=== PATIENT | male | born 1935 | race Caucasian/White ===

== ENCOUNTER 2017-10-25 22:35 | Inpatient (IN) | payer MEDICARE ==
[~2017-10-25] VITALS: Ht 177.8 cm; Wt 83.9 kg
--- NOTE | 2017-10-25 22:56 | Emergency Room Report ---
History of Present Illness General Chief Complaint: Chest Pain Source: Patient, EMS Present Illness HPI Is an 81-year-old male with a history of CAD with previous stents in 2002. He presents with chief complaint of epigastric pain. Onset was tonight. He said he came home from the gym and has something to eat. He developed epigastric pain without radiation. No nausea no vomiting. No diaphoresis but no exertional component. Because the pain didn't go away he called 911. EMS gave him nitroglycerin and aspirin. Right now is pain-free. He think that pain went away after he drank some chamomile tea. Allergies: Coded Allergies: No Known Allergies (Unverified , 10/25/17) Patient History Past Medical History: see triage record, old chart reviewed Past Surgical History: none Pertinent Family History: none Social History: Denies: smoking Immunizations: other Reviewed Nursing Documentation: PMH: Agreed; PSxH: Agreed Nursing Documentation-PMH Hx Cardiac Problems: Yes - stent placed 2004 Review of Systems Eye: Denies: eye pain, blurred vision ENT: Denies: ear pain, nose congestion, throat swelling Respiratory: Denies: cough, shortness of breath Cardiovascular: Reports: chest pain; Denies: palpitations Gastrointestinal: Denies: abdominal pain, diarrhea, nausea, vomiting Musculoskeletal: Denies: back pain, joint pain Skin: Denies: rash Neurological: Denies: headache, numbness Endocrine: Denies: increased thirst, increased urine Hematologic/Lymphatic: Denies: easy bruising All Other Systems: negative except mentioned in HPI Physical Exam Vital Signs Date Time Temp Pulse Resp B/P (MAP) Pulse Ox O2 Delivery O2 Flow Rate FiO2 10/25/17 22:32 98.2 58 16 155/74 96 Room Air 98.2 vitals with high blood pressure Sp02 EP Interpretation: reviewed, normal General Appearance: well appearing, no apparent distress, alert Head: normocephalic, atraumatic Eyes: bilateral eye PERRL, bilateral eye EOMI ENT: hearing grossly normal, normal pharynx Neck: full range of motion, supple, no meningismus Respiratory: chest non-tender, lungs clear, normal breath sounds Cardiovascular #1: regular rate, rhythm, no murmur Gastrointestinal: normal bowel sounds, non tender, no mass, no organomegaly, no bruit, non-distended Musculoskeletal: back normal, gait/station normal, normal range of motion Psychiatric: mood/affect normal Skin: warm/dry Medical Decision Making Diagnostic Impression: Primary Impression: Chest pain Qualified Codes: R07.9 - Chest pain, unspecified ER Course Patient presents with chest pain. Atypical in nature but with his history of UT with stent and age, I will admit for further testing. No evidence of ST elevation UT, PE, dissection, pneumonia to name a few. Patient is pain-free here. Will admit for further workup. I attempted to transfer patient to [facility] because his rating examiner there. Unfortunately, [facility] is on diversion. Discussed the case with Dr. Trevino who will admit. Lab Results Impression labs unremarkable EKG Diagnostic Results Rate: normal Rhythm: NSR ST Segments: no acute changes ASA given to the pt in ED: No - received aspirin by EMS Rhythm Strip Diag. Results Rhythm Strip Time: 22:55 EP Interpretation: yes Rate: 57 Rhythm: NSR, no PVC's, no ectopy Chest X-Ray Diagnostic Results Chest X-Ray Diagnostic Results : Chest X-Ray Ordered: Yes # of Views/Limited/Complete: 1 View Indication: Chest Pain EP Interpretation: Yes Interpretation: no consolidation, no effusion, no pneumothorax, no acute cardiopulmonary disease Impression: No acute disease Electronically Signed by: Anthony Saba MD Last Vital Signs Date Time Temp Pulse Resp B/P (MAP) Pulse Ox O2 Delivery O2 Flow Rate FiO2 10/25/17 22:32 98.2 58 16 155/74 96 Room Air 98.2 Status: improved Disposition: ADMITTED INPATIENT Condition: Serious ANTHONY SABA M.D. Oct 25, 2017 22:56
[2017-10-25 23:52] LABS: ANION GAP 9 mmol/L (5-15); BLOOD UREA NITROGEN 18 mg/dL (7-18); CALCIUM 9.3 MG/DL (8.5-10.1); CARBON DIOXIDE 25 MMOL/L (21-32); CHLORIDE 101 MMOL/L (98-107); POTASSIUM 4.8 MMOL/L (3.5-5.1); SODIUM 135 MMOL/L (136-145)
[2017-10-25 23:54] LABS: HEMOGLOBIN 16.6 G/DL (14.2-18.0); MEAN CORPUSCULAR VOLUME 82 FL (80-99); PLATELET COUNT 126 K/UL (150-450); RED BLOOD COUNT 6.08 M/UL (4.70-6.10); RED CELL DISTRIBUTION WIDTH 13.3 % (11.6-14.8); WHITE BLOOD COUNT 7.5 K/UL (4.8-10.8)
[2017-10-26 00:05] LABS: ALANINE AMINOTRANSFERASE 23 U/L (12-78); ALBUMIN 3.6 G/DL (3.4-5.0); ALBUMIN/GLOBULIN RATIO 0.9 (1.0-2.7); ALKALINE PHOSPHATASE 49 U/L (46-116); ASPARTATE AMINO TRANSFERASE 44 U/L (15-37); BILIRUBIN,TOTAL 0.8 MG/DL (0.2-1.0); CKMB 0.7 NG/ML (0.0-3.6); CREATINE KINASE 141 U/L (26-308)
[2017-10-26 01:00] VITALS: BP 148/89
[2017-10-26 01:10] VITALS: BP 140/74
[2017-10-26] MEDS ORDERED: PLAVIX75 MG ORAL (01:14)
[2017-10-26] MEDS ORDERED: ATENOLOL25 MG ORAL (01:14)
[2017-10-26] MEDS ORDERED: ASPIR 8181 MG ORAL (01:14)
[2017-10-26] MEDS ORDERED: LIVALO2 MG PO (01:14)
[2017-10-26] MEDS ORDERED: Morphine Sulfate 2mg/ml Inj IVP PRN (03:30)
[2017-10-26] MEDS ORDERED: Nitroglycerin Subl 0.4mg tab SL PRN (03:30)
[2017-10-26 04:00] VITALS: BP 106/61
[2017-10-26 06:34] LABS: HEMATOCRIT 49.6 % (42.0-52.0); HEMOGLOBIN 16.2 G/DL (14.2-18.0); MEAN CORPUSCULAR VOLUME 83 FL (80-99); PLATELET COUNT 173 K/UL (150-450); RED BLOOD COUNT 5.95 M/UL (4.70-6.10); RED CELL DISTRIBUTION WIDTH 13.2 % (11.6-14.8); WHITE BLOOD COUNT 7.3 K/UL (4.8-10.8)
[2017-10-26 06:54] LABS: ALANINE AMINOTRANSFERASE 21 U/L (12-78); ALBUMIN 3.5 G/DL (3.4-5.0); ALBUMIN/GLOBULIN RATIO 0.9 (1.0-2.7); ALKALINE PHOSPHATASE 52 U/L (46-116); ANION GAP 7 mmol/L (5-15); ASPARTATE AMINO TRANSFERASE 16 U/L (15-37); BILIRUBIN,TOTAL 0.8 MG/DL (0.2-1.0); BLOOD UREA NITROGEN 20 mg/dL (7-18); CARBON DIOXIDE 29 MMOL/L (21-32); CHLORIDE 102 MMOL/L (98-107); CHOLESTEROL 190 MG/DL (< 200); CREATININE 1.1 MG/DL (0.55-1.30); HDL CHOLESTEROL 42 MG/DL (40-60); POTASSIUM 3.8 MMOL/L (3.5-5.1); SODIUM 138 MMOL/L (136-145); TRIGLYCERIDES 201 MG/DL (30-150)
[2017-10-26 08:00] VITALS: BP 131/77
--- NOTE | 2017-10-26 08:14 | General Progress Note ---
Assessment/Plan Assessment/Plan S: I dont have chest pain O: appears comfortable. PHYSICAL EXAMINATION: HEAD AND NECK: Atraumatic and normocephalic. CHEST: Clear to auscultation. HEART: S1 and S2. Regular rate and rhythm. ABDOMEN: Soft. No organomegaly. MUSCULOSKELETAL: No gross lateralized motor deficit. NEUROLOGIC: The patient is awake, alert, and oriented x3. meds: Reviewed and reconciled in the chart ASSESSMENT: 1. Acute coronary syndrome. 2. Coronary artery disease - history of PTCA and stents placement in 2002. 3. Hyperlipidemia. 4. Hypertension. 5. GI and DVT prophylaxis. Plan: Discussed the care with patient and the RN Comment: I was notified after this encounter, that patient left AMA Subjective Allergies: Coded Allergies: No Known Allergies (Unverified , 10/25/17) Objective Last 24 Hour Vital Signs Date Time Temp Pulse Resp B/P (MAP) Pulse Ox O2 Delivery O2 Flow Rate FiO2 10/26/17 04:00 53 10/26/17 04:00 97.9 58 20 106/61 95 Nasal Cannula 2.0 97.9 10/26/17 01:10 64 10/26/17 01:10 97.2 56 20 140/74 96 Nasal Cannula 2.0 97.2 10/26/17 01:00 98.2 88 16 148/89 96 Room Air 98.2 10/26/17 01:00 98.2 16 155/74 96 Room Air 98.2 10/25/17 23:11 58 16 Room Air 10/25/17 22:32 98.2 58 16 155/74 96 Room Air 98.2 Intake and Output 10/25/17 10/26/17 19:00 07:00 Intake Total 0 ml Balance 0 ml Intake Oral 0 ml Laboratory Tests 10/25/17 23:20: White Blood Count 7.5, Red Blood Count 6.08, Hemoglobin 16.6, Hematocrit 50.0, Mean Corpuscular Volume 82, Mean Corpuscular Hemoglobin 27.3, Mean Corpuscular Hemoglobin Concent 33.3, Red Cell Distribution Width 13.3, Platelet Count 126L, Mean Platelet Volume 8.7, Neutrophils (%) (Auto) , Lymphocytes (%) (Auto) , Monocytes (%) (Auto) , Eosinophils (%) (Auto) , Basophils (%) (Auto) , Sodium Level 135L, Potassium Level 4.8, Chloride Level 101, Carbon Dioxide Level 25, Anion Gap 9, Blood Urea Nitrogen 18, Creatinine 1.0, Estimat Glomerular Filtration Rate , Glucose Level 100, Calcium Level 9.3, Total Bilirubin 0.8, Aspartate Amino Transf (AST/SGOT) 44H, Alanine Aminotransferase (ALT/SGPT) 23, Alkaline Phosphatase 49, Total Creatine Kinase 141, Creatine Kinase MB 0.7, Creatine Kinase MB Relative Index 0.4, Troponin I 0.000, Total Protein 7.5, Albumin 3.6, Globulin 3.9, Albumin/Globulin Ratio 0.9L 10/26/17 05:38: White Blood Count 7.3, Red Blood Count 5.95, Hemoglobin 16.2, Hematocrit 49.6, Mean Corpuscular Volume 83, Mean Corpuscular Hemoglobin 27.2, Mean Corpuscular Hemoglobin Concent 32.6, Red Cell Distribution Width 13.2, Platelet Count 173, Mean Platelet Volume 8.8, Neutrophils (%) (Auto) , Lymphocytes (%) (Auto) , Monocytes (%) (Auto) , Eosinophils (%) (Auto) , Basophils (%) (Auto) , Sodium Level 138, Potassium Level 3.8, Chloride Level 102, Carbon Dioxide Level 29, Anion Gap 7, Blood Urea Nitrogen 20H, Creatinine 1.1, Estimat Glomerular Filtration Rate , Glucose Level 103, Calcium Level 9.0, Total Bilirubin 0.8, Aspartate Amino Transf (AST/SGOT) 16, Alanine Aminotransferase (ALT/SGPT) 21, Alkaline Phosphatase 52, Troponin I 0.000, Total Protein 7.2, Albumin 3.5, Globulin 3.7, Albumin/Globulin Ratio 0.9L, Neutrophils % (Manual) [Pending], Lymphocytes % (Manual) [Pending], Platelet Estimate [Pending], Platelet Morphology [Pending], Hemoglobin A1c 5.5, Triglycerides Level 201H, Cholesterol Level 190, LDL Cholesterol 132H, HDL Cholesterol 42, Cholesterol/HDL Ratio 4.5H , Thyroid Stimulating Hormone (TSH) 2.780 Height (Feet): 5 Height (Inches): 10.00 Weight (Pounds): 185 Clarita Trevino MD Oct 26, 2017 08:14
--- NOTE | 2017-10-26 08:14 | History & Physical ---
History and Physical History & Physicial seen and examined. Full Dictation in progress Clarita Trevino MD Oct 26, 2017 08:14
[2017-10-26] MEDS ORDERED: Aspirin EC 81mg tab ORAL SCH (09:00)
[2017-10-26] MEDS ORDERED: Atenolol 25mg tab ORAL SCH (09:00)
[2017-10-26] MEDS ORDERED: hydroCHLOROthiazide 12.5mg TAB ORAL SCH (09:00)
[2017-10-26] MEDS ORDERED: Enoxaparin 40mg Inj SUBQ SCH (09:00)
[2017-10-26 09:07] VITALS: BP 131/77
--- NOTE | 2017-10-26 11:16 | History and Physical Report ---
DATE OF ADMISSION: 10/26/2017 SOURCE OF INFORMATION: The patient and EMR. HISTORY OF PRESENT ILLNESS: The patient is a pleasant 81-year-old [place] male. The patient presented with the acute chest pain for one day. He describes the pain as sharp with no radiation in the upper aspects of the abdomen. Reported that the pain got better by nitrates and initiated by the strenuous exercise and activity. At the time of evaluation, the patient denies any nausea, vomitus, diarrhea, constipation, fever, or chills. PAST MEDICAL HISTORY: Coronary artery disease, status post PTCA in 2002, hyperlipidemia, and hypertension. FAMILY HISTORY: Reviewed and noncontributory. MEDICATIONS: Home medications including, but not limited to, aspirin, atenolol, and Plavix. PAST SURGICAL HISTORY: PTCA and stents placement in 2002, otherwise denies. ALLERGIES: NKDA. PHYSICAL EXAMINATION: VITAL SIGNS: Blood pressure 150/70, temperature 98.2, pulse oximetry 98% on room air, respiratory rate 18, and pulse rate 58. HEAD AND NECK: Atraumatic and normocephalic. CHEST: Clear to auscultation. HEART: S1 and S2. Regular rate and rhythm. ABDOMEN: Soft. No organomegaly. MUSCULOSKELETAL: No gross lateralized motor deficit. NEUROLOGIC: The patient is awake, alert, and oriented x3. LABORATORY DATA: Labs dated October 25, 2017 shows WBC 7.5, hemoglobin 16.6, and platelet of 126. Sodium 135, potassium 4.8, BUN 18, and creatinine 1. AST 44. LDL 132. TSH 2.7. ASSESSMENT: 1. Acute coronary syndrome. 2. Coronary artery disease - history of PTCA and stents placement in 2002. 3. Hyperlipidemia. 4. Hypertension. 5. GI and DVT prophylaxis. PLAN OF CARE: The patient reported allergy to the statins. I agree with the cardiac monitoring unit. Dr. Jamil, Cardiology notified. We will proceed with the 2D echo, cardiac monitoring, and lipid panel profile. Clarita Trevino M.D. DR: YAHAIRA JOB#: [id number] CC:
--- NOTE | 2017-10-26 11:42 | Diagnostic Imaging Report ---
Indication: Chest pain Comparison: None A single view chest radiograph was obtained. Findings: Cardiomediastinal appearance is within normal limits for age. Pulmonary vascularity is appropriate. The diaphragmatic contour is smooth and costophrenic angles are sharp. No pleural effusions are identified. The bones are unremarkable. Impression: No acute findings
--- NOTE | 2017-10-27 08:23 | Discharge Summary ---
Discharge Summary Discharge Summary _ DATE OF ADMISSION: 10/26/2017 DATE OF DISCHARGE: 10/26/2017 BRIEF HOSPITAL COURSE: Patient is a pleasant 81-year-old [place] male, who presented with acute chest pain for 1 day. Pain was described to be sharp with no radiation. He denied nausea, no vomiting, no diaphoresis. Because of persistence of pain, he called 911. He was given nitroglycerin and aspirin by EMS, with resolution of symptoms. He has medical history significant for coronary artery disease with previous stent in 2002. On evaluation at ED, blood pressure was 155/74. He was pain free. EKG showed normal sinus rhythm with no evidence of ST elevation. Initial troponin was negative. Chest x-ray with no acute findings. 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 He was then admitted for further cardiac monitoring. He was admitted to telemetry and was continued on aspirin and Plavix. He was given atenolol. He refused Lovenox injection, Avapro and hydrochlorothiazide. Full Treatment was not carried out at's he left AGAINST MEDICAL ADVICE. FINAL DIAGNOSES: Possible acute coronary syndrome, with a incomplete workup DISPOSITION: Patient left AMA. I have been assigned to dictate discharge summary on this account, and I was not involved in the patient's management. Jacqueline Burgess NP Oct 27, 2017 08:23
--- NOTE | 2017-10-27 13:15 | Cardiology Report ---
APPROVED REPORT EKG Measurement Heart [id number] Sinus bradycardia Left anterior fascicular block Possible Lateral infarct, age undetermined Abnormal ECG
== END 2017-10-26 14:58 | disposition left against medical advice (07) | DRG 311 ==
LOC: EDBD 22:35 → EMR 22:49 → 2E 10-26 00:16 → EDBEDREQ 10-26 00:20
DX: I24.9 Acute ischemic heart disease, unspecified (principal); I25.10 Atherosclerotic heart disease of native coronary artery without angina pectoris; Z95.5 Presence of coronary angioplasty implant and graft; E78.5 Hyperlipidemia, unspecified; I10 Essential (primary) hypertension; Z79.02 Long term (current) use of antithrombotics/antiplatelets
CPT/HCPCS: 36415; 71045; 80053; 80061; 82550; 82553; 83036; 84443; 84484; 85007; 85025; 93005; 93306; 99285